=== PATIENT | male | born 1975 | race African-American/Black ===

== ENCOUNTER 2021-03-21 18:31 | Emergency (ER) | payer BC ==
[~2021-03-21] VITALS: Ht 182.9 cm; Wt 137.0 kg
[2021-03-21] MEDS ORDERED: LABETALOL HCL 20MG/4ML CARPUJECT IV ONE (19:00)
[2021-03-21 19:25] LABS: BASOPHILS % 0.8 % (0.0-2.0); EOSINOPHILS % 3.9 % (0.0-5.0); HEMATOCRIT. 44.6 % (42.0-52.0); HEMOGLOBIN. 14.5 g/dL (14.0-18.0); LYMPHOCYTES % 24.3 % (20.0-50.0); MEAN CORPUSCULAR HEMOGLOBIN 26.5 pg (28.0-32.0); MEAN CORPUSCULAR VOLUME 81.4 fL (80.0-94.0); MEAN PLATELET VOLUME 8.1 fl (7.4-10.4); MONOCYTES % 6.8 % (2.0-8.0); NEUTROPHILS % 64.2 % (40.0-76.0); PLATELET 350 x1000/uL (130-400); RED BLOOD CELL COUNT 5.48 mill/uL (4.7-6.1); RED CELL DISTRIBUTION WIDTH 14.2 % (11.6-14.6)
[2021-03-21 19:31] LABS: CHLORIDE 95 mEq/L (98-107)
[2021-03-21 19:34] LABS: PROTHROMBIN TIME 10.7 sec (9.6-11.0)
[2021-03-21 21:04] LABS: CLARITY URINE CLEAR (CLEAR); COLOR URINE YELLOW (YELLOW); KETONES URINE NEGATIVE (NEGATIVE); LEUKOCYTE ESTERASE URINE NEGATIVE (NEGATIVE); NITRITE URINE NEGATIVE (NEGATIVE); OCCULT BLOOD URINE NEGATIVE (NEGATIVE); PROTEIN URINE TRACE (NEGATIVE); SPECIFIC GRAVITY URINE 1.014 (1.005-1.030); UROBILINOGEN URINE 0.2 E.U./dL (0.2-1.0)
[2021-03-21 23:30] VITALS: BP 169/116
== END 2021-03-22 00:46 | disposition home or self-care (01) ==
LOC: ER 18:31
DX: R10.9 Unspecified abdominal pain (principal); R55 Syncope and collapse; E11.9 Type 2 diabetes mellitus without complications; I10 Essential (primary) hypertension
CPT/HCPCS: 36415; 71045; 74176; 80053; 81003; 83880; 84484; 85025; 85610; 93005; 96374; 99285; J3490; Z7610

== ENCOUNTER 2021-03-23 00:06 | Emergency (ER) | payer BC ==
[~2021-03-23] VITALS: Ht 182.9 cm; Wt 137.0 kg
[2021-03-23] MEDS ORDERED: SODIUM CHLORIDE 0.9% 1,000 ML IV ONE (02:00)
[2021-03-23 02:12] LABS: BASOPHILS % 0.6 % (0.0-2.0); HEMATOCRIT. 42.8 % (42.0-52.0); HEMOGLOBIN. 14.2 g/dL (14.0-18.0); LYMPHOCYTES % 23.2 % (20.0-50.0); MEAN CORPUSCULAR HEMOGLOBIN 26.7 pg (28.0-32.0); MEAN CORPUSCULAR VOLUME 80.7 fL (80.0-94.0); MONOCYTES % 8.9 % (2.0-8.0); NEUTROPHILS % 62.3 % (40.0-76.0); PLATELET 320 x1000/uL (130-400); RED CELL DISTRIBUTION WIDTH 14.1 % (11.6-14.6)
[2021-03-23 02:18] LABS: CHLORIDE 98 mEq/L (98-107)
[2021-03-23 02:26] LABS: BETA HYDROXYBUTYRATE 0.1 mMol/L (0.0-0.3)
[2021-03-23 04:00] VITALS: BP 170/106
== END 2021-03-23 04:45 | disposition home or self-care (01) ==
LOC: ER 00:06
DX: E11.65 Type 2 diabetes mellitus with hyperglycemia (principal); I10 Essential (primary) hypertension; R35.8 Other polyuria
CPT/HCPCS: 36415; 80053; 82010; 82962; 85025; 93005; 96360; 99284; J7030